=== PATIENT | female | born 1960 | race Caucasian/White ===

== ENCOUNTER 2019-08-25 10:37 | Emergency (ER) | payer MEDICARE, OTHER ==
[~2019-08-25] VITALS: Ht 160 cm; Wt 80.3 kg
[2019-08-25] MEDS ORDERED: HYDROCODONE/APAP 10MG-325MG TAB PO ONE (11:00)
--- NOTE | 2019-08-25 11:51 | Diagnostic Imaging Report ---
EXAMINATION: SHOULDER LEFT COMPLETE INDICATION: Fall COMPARISON: None FINDINGS: No acute fracture or dislocation. Alignment appears anatomic. Mild glenohumeral joint degenerative changes. The visualized portions of the left lung appear clear. Soft tissues appear unremarkable. IMPRESSION: No acute osseous injury. Signed by: Maritza Syed MD on 08/25/2019 11:47 AM
--- NOTE | 2019-08-25 12:01 | Diagnostic Imaging Report ---
EXAMINATION: ELBOW LEFT COMPLETE, WRIST COMPLETE LEFT INDICATION: Trauma COMPARISON: None FINDINGS: Left elbow: There is a prominent elbow joint effusion. Multiple old fracture deformities of the proximal radius and ulna and prominent elbow joint degenerative changes with bulky osteophyte formation. No definite acute fracture component identified, however the presence of effusion is highly suggestive of nondisplaced occult fracture. Left wrist: No acute fracture or dislocation. Severe degenerative changes of the radiocarpal and intercarpal joints with obliteration of the joint space and osteophyte formation. Prominent degenerative changes also involve the first MCP joint. Atherosclerotic arterial calcifications. IMPRESSION: Multiple old fracture deformities of the proximal radius and ulna. Even though there is no clear acute displaced fracture, the presence of a prominent elbow joint effusion is highly suggestive of underlying nondisplaced acute fracture, statistically most likely of the radial head. No acute osseous injury of the left wrist. Prominent degenerative changes of the left elbow and left wrist as above. Signed by: Maritza Syed MD on 08/25/2019 11:58 AM
[2019-08-25 12:25] VITALS: BP 140/76
== END 2019-08-25 12:25 | disposition home or self-care (01) ==
LOC: ER 10:37
DX: S52.322A Displaced transverse fracture of shaft of left radius, initial encounter for closed fracture (principal); S52.222A Displaced transverse fracture of shaft of left ulna, initial encounter for closed fracture; W01.0XXA Fall on same level from slipping, tripping and stumbling without subsequent striking against object, initial encounter; Y93.01 Activity, walking, marching and hiking; Y92.008 Other place in unspecified non-institutional (private) residence as the place of occurrence of the external cause
CPT/HCPCS: 99282

== ENCOUNTER 2019-10-13 15:44 | Emergency (ER) | payer MEDICARE, OTHER ==
[~2019-10-13] VITALS: Ht 160 cm; Wt 80.3 kg
--- OUTSIDE RECORDS SUMMARY | 2019-10-13 15:47 | XMS REPORT ---
Author Author [facility] Organization [facility] Address [address] [place] [address] Phone Unavailable Care Team Providers Care Instructor Of Spanish Name Role Phone Bruno DEE JARON PCP Casi FREEMAN Attphymeggan Unavailable Payers Payer Name Policy Type Policy Number Effective Date Expiration Date S kwan [employer] Medicare Replacement [id number] [facility] Problems This patient has no known problems. Allergies, Adverse Reactions, Alerts This patient has no known allergies or adverse reactions. Medications This patient has no known medications. Procedures This patient has no known procedures. Encounters Start Date/Time End Date/Time Encounter Type Admission Type Att[facility] Care Department Encounter ID Source 2019-08-25 10:37:00 2019-08-25 12:25:00 Departed Emergency Room 1 AMEYA FREEMAN [facility] [id number] [facility] Results Test Description Test Time Test Comments Results Result Comments Source WRIST COMPLETE LEFT 2019-08-25 11:53:00 [facility] [address] [place], [place] [address] Patient Name: TAI DUNAWAY MR #: [id number] : 1960 Age/Sex: 59/F Req #: [id number] Adm Physician: Ordered by: EMILY FIELDS NP Report #: [id number] Location: ER Room/Bed: Procedure: [id number] DX/WRIST COMPLETE LEFT Exam Date: 08/25/19 Exam Time: 1120 REPORT STATUS: Signed EXAMINATION: ELBOW LEFT COMPLETE, WRIST COMPLETE LEFT INDICATION: Trauma COMPARISON: None FINDINGS: Left elbow: There is a prominent elbow joint effusion. Multiple old fracture deformities of the proximal radius and ulna and prominent elbow joint degenerative changes with bulky osteophyte formation. No definite acute fracture component identified, however the presence of effusion is highly suggestive of nondisplaced occult fracture. Left wrist: No acute fracture or dislocation. Severe degenerative changes of the radiocarpal and intercarpal joints with obliteration of the joint space and osteophyte formation. Prominent degenerative changes also involve the first MCP joint. Atherosclerotic arterial calcifications. IMPRESSION: Multiple old fracture deformities of the proximal radius and ulna. Even though there is no clear acute displaced fracture, the presence of a prominent elbow joint effusion is highly suggestive of underlying nondisplaced acute fracture, statistically most likely of the radial head. No acute osseous injury of the left wrist. Prominent degenerative changes of the left elbow and left wrist as above. Signed by: Kali Sahu MD on 08/25/2019 11:58 AM Dictated By: KALI SAHU MD 1158 Transcribed By: MANJULA on 08/25/19 1158 COPY TO: EMILY FIELDS NP ELBOW LEFT COMPLETE 2019-08-25 11:53:00 [place] [address] Patient Name: TAI DUNAWAY MR #: [id number] : 1960 Age/Sex: 59/F Req #: [id number] Adm Physician: Ordered by: EMILY FIELDS NP Report #: [id number] Location: ER Room/Bed: Procedure: [id number] DX/ELBOW LEFT COMPLETE Exam Date: 08/25/19 Exam Time: 1120 REPORT STATUS: Signed EXAMINATION: ELBOW LEFT COMPLETE, WRIST COMPLETE LEFT INDICATION: Trauma COMPARISON: None FINDINGS: Left elbow: There is a prominent elbow joint effusion. Multiple old fracture deformities of the proximal radius and ulna and prominent elbow joint degenerative changes with bulky osteophyte formation. No definite acute fracture component identified, however the presence of effusion is highly suggestive of nondisplaced occult fracture. Left wrist: No acute fracture or dislocation. Severe degenerative changes of the radiocarpal and intercarpal joints with obliteration of the joint space and osteophyte formation. Prominent degenerative changes also involve the first MCP joint. Atherosclerotic arterial calcifications. IMPRESSION: Multiple old fracture deformities of the proximal radius and ulna. Even though there is no clear acute displaced fracture, the presence of a prominent elbow joint effusion is highly suggestive of underlying nondisplaced acute fracture, statistically most likely of the radial head. No acute osseous injury of the left wrist. Prominent degenerative changes of the left elbow and left wrist as above. Signed by: Kali Sahu MD on 08/25/2019 11:58 AM Dictated By: KALI SAHU MD 1158 Transcribed By: MANJULA on 08/25/19 1158 COPY TO: EMILY FIELDS NP SHOULDER LEFT COMPLETE 2019-08-25 11:46:00 [place] [address] Patient Name: TAI DUNAWAY MR #: [id number] : 1960 Age/Sex: 59/F Req #: [id number] Adm Physician: Ordered by: EMILY FIELDS NP Report #: [id number] Location: ER Room/Bed: Procedure: [id number] DX/SHOULDER LEFT COMPLETE Exam Date: 08/25/19 Exam Time: 1120 REPORT STATUS: Signed EXAMINATION: SHOULDER LEFT COMPLETE INDICATION: Fall COMPARISON: None FINDINGS: No acute fracture or dislocation. Alignment appears anatomic. Mild glenohumeral joint degenerative changes. The visualized portions of the left lung appear clear. Soft tissues appear unremarkable. IMPRESSION: No acute osseous injury. Signed by: Kali Sahu MD on 08/25/2019 11:47 AM Dictated By: KALI SAHU MD 1143 Transcribed By: MANJULA on 08/25/19 114 COPY TO: EMILY FIELDS NP
--- NOTE | 2019-10-13 16:20 | Emergency Department Note ---
History of Present Illnes History of Present Illness Chief Complaint: General Medicine Complaints History of Present Illness This is a 59 year old female 3 day history of R UE swelling and pain. Denies f/c/n/v. 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 Onset (how long ago): day(s) (3) Location: R hand and R FA Radiation: extremity Severity: mild Duration (how long): day(s) (3) Timing of current episode: constant Progression: worsening Chronicity: new Context: recent illness, recent surgery, recent immobilization, recent travel, trauma/injury, new medications, hx of DVT/PE, non-compliance w/ medications, other Relieving factors: immobilization Exacerbating factors: movement Associated symptoms: denies other symptoms Treatments prior to arrival: none Risk factors: h/o of rheumatoid arthritis Past Medical/Family History Physician Review I have reviewed the patient's past medical and family history. Any updates have been documented here. Past Medical History Recent Fever: No Clinical Suspicion of Infectio: No New/Unexplained Change in Ment: No Past Medical History: Hypertension, Diabetes, Depression, Hyperlipedemia, Chronic Back Pain, Osteoarthritis Other Medical History: RHEUMATOID ARTHRITIS Past Surgical History: Hysterectomy, T&A, Social History Smoking Cessation: Never Smoker Alcohol Use: None Any Illegal Drug Use: No Family History Family history of heart diseas: No Other Last Tetanus: UNKNOWN Review of Systems Review of Systems Constitutional: no symptoms EENTM: no symptoms Cardiovascular: no symptoms Respiratory: no symptoms Gastrointestinal: no symptoms Genitourinary: no symptoms Musculoskeletal: joint swelling Neurological: no symptoms Psychological: no symptoms Endocrine: no symptoms Hematological/Lymphatic: no symptoms Review of other systems All other systems reviewed and negative. Physical Exam Related Data Allergies: Coded Allergies: No Known Drug Allergies (Verified Allergy, Mild, 04/03/10) Triage Vital Signs Vital Signs Date Time Temp Pulse Resp B/P (MAP) Pulse Ox O2 Delivery O2 Flow Rate FiO2 10/13/19 16:04 98.1 96 18 151/96 98 Vital signs reviewed: Yes Physical Exam CONSTITUTIONAL Constitutional: well-developed, well-nourished HENT HENT: normocephalic, atraumatic, oropharynx clear/moist, nose normal HENT L/R: left ext ear normal, right ext ear normal EYES Eyes: PERRL, conjunctivae normal NECK Neck: ROM normal PULMONARY Pulmonary: effort normal, breath sounds normal CARDIOVASCULAR Cardiovascular: regular rhythm, heart sounds normal, capillary refill normal, normal rate GASTROINTESTINAL Abdominal: soft, nontender, bowel sounds normal GENITOURINARY Genitourinary: exam deferred SKIN Skin: warm, dry MUSCULOSKELETAL Musculoskeletal: ROM normal, edema (R hand), swelling (R hand with ulnar deviation of digits) NEUROLOGICAL Neurological: alert, oriented x 3, no gross motor or sensory deficits PSYCHOLOGICAL Psychological: mood/affect normal, judgement normal Results Imaging Imaging results reviewed: Yes Impressions [place] [address] Patient Name: TAI DUNAWAY MR #: [id number] : 1960 Age/Sex: 59/F Req #: [id number] Adm Physician: Ordered by: TONI RUBIO DO Report #: [id number] Location: ER Room/Bed: Procedure: [id number] DX/FOREARM RIGHT 2 VIEW Exam Date: 10/13/19 Exam Time: 1635 REPORT STATUS: Signed Right hand, 3 views. Right forearm, 2 views. History: Right hand and forearm pain. Findings: The soft tissues are normal. The bones are diffusely osteopenic. There is no evidence of fracture or dislocation. There are no lytic or sclerotic lesions. Severe joint space with osteophytosis and subchondral sclerosis is present throughout the interphalangeal joints, intercarpal and radial carpal joints, and elbow joint, as well as the first and second metacarpophalangeal joints. IMPRESSION: Advanced right hand and elbow DJD. No acute osseous abnormality. Signed by: Toni Velasco on 10/13/2019 5:00 PM Dictated By: TONI VELASCO MD 99 Transcribed By: MANJULA on 10/13/191699 COPY TO: TONI RUBIO DO~ [place] [address] Patient Name: TAI DUNAWAY MR #: [id number] : 1960 Age/Sex: 59/F Req #: [id number] Adm Physician: Ordered by: TONI RUBIO DO Report #: [id number] Location: ER Room/Bed: Procedure: [id number] DX/HAND 3+ VIEWS RIGHT Exam Date: 10/13/19 Exam Time: 1635 REPORT STATUS: Signed Right hand, 3 views. Right forearm, 2 views. History: Right hand and forearm pain. Findings: The soft tissues are normal. The bones are diffusely osteopenic. There is no evidence of fracture or dislocation. There are no lytic or sclerotic lesions. Severe joint space with osteophytosis and subchondral sclerosis is present throughout the interphalangeal joints, intercarpal and radial carpal joints, and elbow joint, as well as the first and second metacarpophalangeal joints. IMPRESSION: Advanced right hand and elbow DJD. No acute osseous abnormality. Signed by: Toni Velasco on 10/13/2019 5:00 PM Dictated By: TONI VELASCO MD 99 Transcribed By: MANJULA on 10/13/191699 COPY TO: TONI RUBIO DO~ Assessment & Plan Assessment & Plan Problems: (1) Rheumatoid arthritis involving right hand Assessment & Plan XR reviewed with patient. Rx Prednisone for RA flare up. Plan to discharge to home Depart Disposition: HOME, SELF-CARE Last Vital Signs Date Time Temp Pulse Resp B/P (MAP) Pulse Ox O2 Delivery O2 Flow Rate FiO2 10/13/19 16:04 98.1 96 18 151/96 98 TONI RUBIO DO October 13, 2019 16:20
--- NOTE | 2019-10-13 17:03 | Diagnostic Imaging Report ---
Right hand, 3 views. Right forearm, 2 views. History: Right hand and forearm pain. Findings: The soft tissues are normal. The bones are diffusely osteopenic. There is no evidence of fracture or dislocation. There are no lytic or sclerotic lesions. Severe joint space with osteophytosis and subchondral sclerosis is present throughout the interphalangeal joints, intercarpal and radial carpal joints, and elbow joint, as well as the first and second metacarpophalangeal joints. IMPRESSION: Advanced right hand and elbow DJD. No acute osseous abnormality. Signed by: Chandu Velasco on 10/13/2019 5:00 PM
[2019-10-13 17:43] VITALS: BP 151/96
== END 2019-10-13 17:45 | disposition home or self-care (01) ==
LOC: ER 15:44
DX: M79.641 Pain in right hand (principal); M25.521 Pain in right elbow; M19.021 Primary osteoarthritis, right elbow; M06.9 Rheumatoid arthritis, unspecified; I10 Essential (primary) hypertension; E11.9 Type 2 diabetes mellitus without complications; E78.5 Hyperlipidemia, unspecified; F32.9 Major depressive disorder, single episode, unspecified
CPT/HCPCS: 99283